=== PATIENT | male | born 1980 | race Caucasian/White ===

== ENCOUNTER 2022-09-10 23:24 | Emergency (ER) | payer SELFPAY ==
[2022-09-10 23:32] VITALS: BP 171/88; PULSE 72; RESP 18; TEMP 98; BMI 35.2
[2022-09-10] MEDS ORDERED: DIPHTH,PERTUSS(ACELL),TET 0.5 ML DISP.SYRIN IM ONE ×2 (23:54→23:57)
[2022-09-11] MEDS ORDERED: CEPHALEXIN MONOHYDRATE 500 MG CAPSULE (UD) PO ONE (00:58)
[2022-09-11] MEDS ORDERED: CEPHALEXIN MONOHYDRATE 500 MG CAPSULE (UD) ONE (01:00)
== END 2022-09-11 01:02 | disposition home or self-care (01) ==
LOC: JER 23:24
PROC: 0HQEXZZ Repair Left Lower Arm Skin, External Approach (ICD-10-PCS; principal; 2022-09-10)
PROC: 3E0234Z Introduction of Serum, Toxoid and Vaccine into Muscle, Percutaneous Approach (ICD-10-PCS; 2022-09-10)
DX: S61.412A Laceration without foreign body of left hand, initial encounter (principal); W26.0XXA Contact with knife, initial encounter
CPT/HCPCS: 90715; 99283-25

== ENCOUNTER 2022-09-17 18:50 | Emergency (ER) | payer SELFPAY ==
[2022-09-17 19:16] VITALS: BP 134/77; PULSE 95; RESP 20; TEMP 98.2; BMI 34.7
== END 2022-09-17 21:59 | disposition home or self-care (01) ==
LOC: JERFT 18:50
DX: S61.012D Laceration without foreign body of left thumb without damage to nail, subsequent encounter (principal); X58.XXXD Exposure to other specified factors, subsequent encounter
CPT/HCPCS: 99282-25